=== PATIENT | male | born 1960 | race Caucasian/White ===

== ENCOUNTER 2019-02-16 14:59 | Emergency (ER) | payer BC, OTHER ==
--- NOTE | 2019-02-16 15:23 | UC ---
General HPI - HPI Summary HPI Summary: 58 yo gentleman presents with progressive RLE pain, tingling. Started approx 1 month ago, but worse since yesterday. Seen by office PT, advised to be checked out for an arterial problem. Has been increasingly painful to walk distances, better when stops walking and stands. Sleeps on cough, does not wake up with pain. Pain is and has been in post R calf, but now worse. Tingling just started this week, worse. Tingling noted in plantar foot and great toe. No sob / cp. + tobacco, planning to quit. No palpitations. No abd issues No b/b issues No recent injury, although approx 6 weeks ago, he was hit in the back of the R foot with a forklift at work. Did not require further intervention. Hx R foot surgery as a child d/t infection from a nail. No known fam hx of similar - History of Current Complaint Chief Complaint: UCLowerExtremity Stated Complaint: LEG PAIN Hx Obtained From: Patient Pain Intensity: 7 - Allergy/Home Medications Allergies/Adverse Reactions: Allergies Allergy/AdvReac Type Severity Reaction Status Date / Time Penicillins Allergy Unknown Verified 02/16/19 15:16 Reaction Details Home Medications: Home Medications NK [No Home Medications Reported] 02/16/19 [History Confirmed 02/16/19] PMH/Surg Hx/FS Hx/Imm Hx Previously Healthy: Yes - Surgical History Surgical History: Yes Surgery Procedure, Year, and Place: multiple nasal surgeries after fx, right foot surgery - Family History Known Family History: Negative: Cardiac Disease, Hypertension, Diabetes - Social History Alcohol Use: Rare Substance Use Type: None Smoking Status (MU): Heavy Every Day Tobacco Smoker Review of Systems All Other Systems Reviewed And Are Negative: Yes Constitutional: Positive: Negative - see hpi Skin: Positive: Negative Eyes: Positive: Negative ENT: Positive: Negative Respiratory: Positive: Negative Cardiovascular: Positive: Negative Gastrointestinal: Positive: Negative Genitourinary: Positive: Negative Motor: Positive: Other - see hpi Neurovascular: Positive: Other - see hpi Musculoskeletal: Positive: Other: - see hpi Neurological: Positive: Other - see hpi Psychological: Positive: Negative Is Patient Immunocompromised?: No Physical Exam Triage Information Reviewed: Yes Appearance: Well-Appearing, Well-Nourished Vital Signs: Initial Vital Signs Temp 97.9 F 07/12/19 15:11 Pulse 73 02/16/19 15:11 Resp 12 02/16/19 15:11 BP 141/95 02/16/19 15:11 Pulse Ox 99 02/16/19 15:11 Vital Signs Reviewed: Yes Eye Exam: Normal - grossly normal ENT Exam: Normal ENT: Positive: Pharynx normal Neck: Positive: Supple Respiratory Exam: Normal - no tachypnea, no dyspnea. RR normal Cardiovascular Exam: Other - HR normal, nondiaphoretic. See leg exam below Abdominal Exam: Normal Abdomen Description: Positive: Nontender Musculoskeletal Exam: Other - Pulse exam by palpation: DP L faint, no PT L. DP / PT R not palpable. L foot warm to touch, no pain. No calf pain. No poplit. pain. R foot warm to touch, but cooler great toe with elevation. + dysesthesia plantar foot from heel to toe, extending to medial foot and big toe and to some degree distal med dorsal foot exschar post R heel, no fluctuance. R post calf + tender to pressure. R popl nontender. Neurological Exam: Other - see above o/w nonfocal Psychological Exam: Normal - conversing easily and appropriately Skin Exam: Normal - see above no visible or reported rash. scattered regular bug bites, no cellulitis Course/Dx - Course Course Of Treatment: Reviewed coa / tx plan Reviewed vasc studies (limited available). U/S - no dvt RLE 17:20 waiting for [facility] / tbi 17:35 see edwin / tbi Questions as posed answered to the best of my ability. Spoke with Dr. Woody, vascular surgeon not available at [facility] [place]. 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 Mr. Prieto thinks he will go to the ED at [facility]. Will check with [facility] at home. EMS offered but declines. Will go POV if he goes. I reached out to the [facility] at [facility]. Spoke with SAMANTHA Ho. She will advised ED. - Diagnoses Provider Diagnosis: Peripheral arterial disease, Numbness Discharge - Sign-Out/Discharge Documenting (check all that apply): Patient Departure All imaging exams completed and their final reports reviewed: Yes - Discharge Plan Condition: Guarded Disposition: HOME-RECOMMEND TO ED Patient Education Materials: Peripheral Vascular Disease (ED), Peripheral Artery Disease (ED), Hypertension (ED) Referrals: Shashank Nunez DO [Primary Care Provider] - Additional Instructions: Recommend that you go to the Emergency Department, [facility]. Please call 911 if worse or new problems en route. You will need to follow up with your primary care physician in the next 1-2 week (high blood pressure). I spoke with SAMANTHA Ho ([facility] 18:10). - Billing Disposition and Condition Condition: GUARDED Disposition: Home-Recommend to ED
[2019-02-16 17:25] VITALS: BP 162/100
== END 2019-02-16 18:23 | disposition home health service (06) ==
LOC: UCEAST 14:59
DX: I73.9 Peripheral vascular disease, unspecified (principal); R20.0 Anesthesia of skin; Z88.0 Allergy status to penicillin
CPT/HCPCS: 93922; 99212; G0463